=== PATIENT | female | born 1950 | race Two or more races ===

== ENCOUNTER 2020-03-27 14:53 | Inpatient (IN) | payer MEDICARE ==
[~2020-03-27] VITALS: Ht 154.9 cm; Wt 47.2 kg
[2020-03-27] MEDS ORDERED: TEMAZEPAM 7.5 MG CAPSULE PO PRN (15:30)
[2020-03-27] MEDS ORDERED: ACETAMINOPHEN 325 MG TABLET PO PRN (15:30)
[2020-03-27] MEDS ORDERED: MAGNESIUM HYDROXIDE 30 ML UDC PO PRN (15:30)
[2020-03-27] MEDS ORDERED: clonazePAM 0.5 MG TABLET PO PRN (15:30)
[2020-03-27] MEDS ORDERED: MAG HYDROX/AL HYDROX/SIMETH 30 ML UDC PO PRN (15:30)
[2020-03-27] MEDS ORDERED: BLOOD SUGAR DIAGNOSTIC 1 EACH STRIP IN ONE (15:30)
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
[2020-03-27 16:00] VITALS: BP 144/73
[2020-03-27] MEDS ORDERED: DEXTROSE 50%-WATER 50 ML DISP.SYRIN IV PRN (17:00)
[2020-03-27] MEDS: BLOOD SUGAR DIAGNOSTIC 1 EACH STRIP IN SCH ×2 (17:24→21:20)
--- NOTE | 2020-03-27 17:24 | NUR ---
GPS RN NOTE: ACCUCHECK PATIENT REFUSED BEFORE DINNER ACCUCHECK AT 1645 STATING THAT SHE DIDN'T NEED IT BECAUSE HER BG WAS CHECKED AROUND 1600 FOR ADMISSION
--- NOTE | 2020-03-27 17:40 | NUR ---
RN-CO: DR COLES MADE AWARE OF THE ADMISSION.
[2020-03-27 20:00] VITALS: BP 147/69
[2020-03-27] MEDS: INSULIN REGULAR, HUMAN 100 UNIT/ML 3 ML VIAL SQ PRN (21:21)
[2020-03-28] MEDS: BLOOD SUGAR DIAGNOSTIC 1 EACH STRIP IN SCH ×4 (07:37→21:22)
[2020-03-28] MEDS: INSULIN REGULAR, HUMAN 100 UNIT/ML 3 ML VIAL SQ PRN ×4 (07:40→21:24)
[2020-03-28 07:53] LABS: ALBUMIN 3.1 g/dL (3.4-5.0); BILIRUBIN,TOTAL 0.5 mg/dL (0.2-1.0); CALCIUM, SERUM 9.2 mg/dL (8.5-10.1); CREATININE 0.8 mg/dL (0.6-1.3); POTASSIUM 4.3 mmol/L (3.5-5.1)
[2020-03-28 08:00] VITALS: BP 150/80
--- NOTE | 2020-03-28 09:00 | NUR ---
RN NOTE- PT QUIET WITHDRAWN ISOLATIVE INTERACTIVE ON QUERY DENIES SI HI AH VH MUMBLES TO SELF, SINGING SOFTLY IN ROOM WHEN ALONE, PO INTAKE GOOD NO EYE CONTACT WHEN ENGAGED
[2020-03-28] MEDS: risperiDONE 1 MG TABLET PO SCH ×2 (13:46→20:06)
--- NOTE | 2020-03-28 13:49 | NUR ---
INITIAL DISCHARGE PLAN: Pt is homeless and wishes to return to [facility]. Pt refused local SNF placement as she states she is not from around here and does not know this area. ERIN will help form a safe and proper discharge in collaboration with .
[2020-03-28 14:08] LABS: CHOLESTEROL 216 mg/dL (<200); HDL CHOLESTEROL 68 mg/dL (40-60); LDL 136 mg/dL (0-99); TRIGLYCERIDES 102 mg/dL (30-150)
--- NOTE | 2020-03-28 14:55 | NUR ---
GROUP NOTE: SW met with pt to encourage her to participate in group therapy. Pt is not appropriate at this time. Pt has disorganized and paranoid thought process and her speech is mumbled and nonsensical. Pt refused to get up from bed and go to the activity room do to "others will follow me."
[2020-03-28 16:00] VITALS: BP 154/72
[2020-03-28 20:00] VITALS: BP 135/64
[2020-03-28 21:09] VITALS: BP 135/64
[2020-03-29 08:00] VITALS: BP 141/73
[2020-03-29] MEDS: BLOOD SUGAR DIAGNOSTIC 1 EACH STRIP IN SCH ×3 (08:07→21:27)
[2020-03-29] MEDS: risperiDONE 1 MG TABLET PO SCH ×3 (08:08→16:53)
[2020-03-29] MEDS: INSULIN REGULAR, HUMAN 100 UNIT/ML 3 ML VIAL SQ PRN ×4 (08:11→21:28)
[2020-03-29 16:00] VITALS: BP 120/62
[2020-03-29 20:00] VITALS: BP 151/74
[2020-03-29 20:38] VITALS: BP 151/74
--- NOTE | 2020-03-29 21:27 | NUR ---
GPS RN NOTES ACCU-CHECK BLOOD SUGAR CHECK 224,REFUSED INSULIN COVERAGE
[2020-03-30] MEDS: BLOOD SUGAR DIAGNOSTIC 1 EACH STRIP IN SCH ×4 (07:56→21:33)
[2020-03-30] MEDS: risperiDONE 1 MG TABLET PO SCH ×2 (07:57→17:13)
[2020-03-30 08:00] VITALS: BP 149/80
[2020-03-30] MEDS: INSULIN REGULAR, HUMAN 100 UNIT/ML 3 ML VIAL SQ PRN ×3 (08:10→17:30)
[2020-03-30 10:04] LABS: BASOPHILS % (AUTO) 0.4 % (0.0-2.0); EOSINOPHILS % (AUTO) 1.1 % (0.0-6.0); HEMATOCRIT 40 % (33-45); HEMOGLOBIN 13.2 g/dL (11.5-14.8); LYMPHOCYTES # (AUTO) 1.5 /CMM (0.8-4.8); LYMPHOCYTES % (AUTO) 21.7 % (20.0-44.0); MEAN CORPUSCULAR HGB CONC 33 g/dl (31.0-36.0); MEAN CORPUSCULAR VOLUME 88 fL (82-100); MONOCYTES # (AUTO) 0.4 /CMM (0.1-1.30); MONOCYTES % (AUTO) 5.9 % (2.0-12.0); NEUTROPHILS % (AUTO) 70.9 % (43.0-81.0); PLATELET COUNT (AUTO) 179 /CMM (150-450); RED BLOOD CELL COUNT(AUTO) 4.55 MIL/uL (4.0-5.2); WHITE BLOOD COUNT (AUTO) 7.1 K/uL (4.3-11.0)
[2020-03-30 10:39] LABS: BILIRUBIN,TOTAL 0.3 mg/dL (0.2-1.0); CALCIUM, SERUM 9.4 mg/dL (8.5-10.1); CREATININE 0.9 mg/dL (0.6-1.3); POTASSIUM 4.6 mmol/L (3.5-5.1); TOTAL PROTEIN, SERUM 7.2 g/dL (6.4-8.2)
[2020-03-30] MEDS: LISINOPRIL (10MG) 10 MG TABLET PO SCH (12:16)
[2020-03-30] MEDS: METFORMIN 500 MG TABLET PO SCH ×2 (12:16→17:13)
[2020-03-30 15:59] VITALS: BP 134/66
[2020-03-30 19:46] VITALS: BP 126/69
[2020-03-30 20:00] VITALS: BP 126/69
--- NOTE | 2020-03-30 21:10 | NUR ---
GPS RN NOTE: REFUSED SKIN ASSESSMENT PATIENT REFUSED WEEKLY SKIN ASSESSMENT DESPITE OF RISKS & BENEFITS EXPLANATIONS, GOT ANXIOUS, AGITATED & COVERED HER FACE WITH A SHEET.
--- NOTE | 2020-03-30 22:21 | NUR ---
GPS RN NOTE: REFUSED INSULIN PATIENT'S BLOOD SUGAR IS 157 MG/DL, EXPLAINED TO THE PATIENT THAT PER SLIDING SCALE, 2 UNITS NEEDS TO BE GIVEN BUT PATIENT CONTINUED TO REFUSE DESPITE OF EXPLANATIONS. PT KEPT REPEATING," I AM OK, THIS IS NORMAL FOR ME, NO INSULIN, NO INSULIN." PATIENT ALSO REFUSED TO HAVE SNACK AT THIS TIME & WANTED TO SLEEP. WILL CONTINUE TO MONITOR FOR ANY CHANGES. CN MADE AWARE.
[2020-03-31] MEDS: BLOOD SUGAR DIAGNOSTIC 1 EACH STRIP IN SCH ×4 (07:45→21:05)
[2020-03-31] MEDS: INSULIN REGULAR, HUMAN 100 UNIT/ML 3 ML VIAL SQ PRN ×3 (07:47→21:05)
[2020-03-31 08:00] VITALS: BP 133/62
[2020-03-31] MEDS: METFORMIN 500 MG TABLET PO SCH ×2 (09:02→17:32)
[2020-03-31] MEDS: LISINOPRIL (10MG) 10 MG TABLET PO SCH (09:07)
[2020-03-31] MEDS: glipiZIDE 5 MG TABLET PO SCH (09:08)
[2020-03-31] MEDS: risperiDONE 1 MG TABLET PO SCH ×2 (09:08→17:32)
--- NOTE | 2020-03-31 14:52 | NUR ---
GROUP NOTE: SW encouraged pt to attend group therapy on this present day. Pt was asleep and not easily roused by verbal cues.
[2020-03-31 16:00] VITALS: BP 105/53
[2020-03-31 20:18] VITALS: BP 119/62
--- NOTE | 2020-03-31 21:06 | NUR ---
GPS RN NOTES: REFUSED ACCU CHECK PT REFUSED ACCU CHECK. PT STATED, "I WANT TO SLEEP." EXPLAIN RISK AND BENEFITS. PT STILL REFUSED X3. CONTINUE TO MONITOR
[2020-04-01] MEDS: BLOOD SUGAR DIAGNOSTIC 1 EACH STRIP IN SCH ×4 (08:43→21:39)
[2020-04-01] MEDS: risperiDONE 1 MG TABLET PO SCH ×2 (08:45→16:24)
[2020-04-01] MEDS: METFORMIN 500 MG TABLET PO SCH ×2 (08:46→16:23)
[2020-04-01] MEDS: glipiZIDE 5 MG TABLET PO SCH (08:46)
[2020-04-01] MEDS: LISINOPRIL (10MG) 10 MG TABLET PO SCH (08:46)
[2020-04-01] MEDS: SERTRALINE HCL 25 MG TABLET PO SCH (11:28)
[2020-04-01] MEDS: INSULIN REGULAR, HUMAN 100 UNIT/ML 3 ML VIAL SQ PRN ×2 (12:15→21:40)
--- NOTE | 2020-04-01 15:34 | NUR ---
GROUP NOTE: SW encouraged pt to attend group therapy on this present day. Pt was asleep and not easily roused by verbal cues.
[2020-04-01 16:00] VITALS: BP 120/55
--- NOTE | 2020-04-01 19:43 | NUR ---
RN NOTES PATIENT IN BED, ASLEEP, ALERT AND ORIENTED X 2. PT IS CONFUSED, FORGETFUL, COOPERATIVE, AND CALM. SHOWS NO SIGNS OF ACUTE DISTRESS. DISCUSSED PLAN OF CARE. SAFETY PRECAUTIONS IN PLACE. BED IN LOWEST POSITION, LOCKED, AND WILL CONTINUE TO MONITOR.
[2020-04-01 20:57] VITALS: BP 104/69
--- NOTE | 2020-04-01 22:00 | NUR ---
RN NOTES PATIENT BG 147. REFUSED COVERAGE. WILL CONTINUE TO MONITOR.
[2020-04-02] MEDS: BLOOD SUGAR DIAGNOSTIC 1 EACH STRIP IN SCH ×4 (07:30→21:00)
[2020-04-02 08:00] VITALS: BP 125/59
[2020-04-02] MEDS: SERTRALINE HCL 25 MG TABLET PO SCH (09:02)
[2020-04-02] MEDS: risperiDONE 1 MG TABLET PO SCH ×2 (09:02→16:40)
[2020-04-02] MEDS: glipiZIDE 5 MG TABLET PO SCH ×2 (09:02→16:41)
[2020-04-02] MEDS: METFORMIN 500 MG TABLET PO SCH ×2 (09:03→16:41)
[2020-04-02] MEDS: LISINOPRIL (10MG) 10 MG TABLET PO SCH (09:03)
[2020-04-02] MEDS: INSULIN REGULAR, HUMAN 100 UNIT/ML 3 ML VIAL SQ PRN ×3 (12:26→21:01)
--- NOTE | 2020-04-02 14:22 | NUR ---
GROUP NOTE: SW encouraged pt to attend group therapy on this present day. Pt was asleep and not easily roused by verbal cues.
[2020-04-02 16:00] VITALS: BP 106/52
[2020-04-02 20:08] VITALS: BP 102/51
--- NOTE | 2020-04-02 20:56 | NUR ---
GPS RN NOTES: REFUSED INSULIN PT BLOOD SUGAR AT 169. PT REFUSED INSULIN COVERAGE PER SLIDING SCALE. EXPLAIN RISKS AND BENEFITS. PT STILL REFUSED X3. PT STATED, "I DON'T WANT. LET ME SLEEP. ITS A LITTLE HIGH BECAUSE I ATE. I DON'T WANT." PT ALSO REFUSED VITALS PT INCREASED AGITATION. CONTINUE TO MONITOR
[2020-04-03] MEDS: BLOOD SUGAR DIAGNOSTIC 1 EACH STRIP IN SCH ×4 (07:51→22:00)
--- NOTE | 2020-04-03 07:52 | NUR ---
GPS/RN-NOTES PATIENT BS WAS 161MG/DL, PATIENT REFUSED 3UNITS COVERAGE. STATED" I DON'T WANT INSULIN". OFFERED X3 STILL REFUSED.
[2020-04-03 08:00] VITALS: BP 123/64
[2020-04-03] MEDS: glipiZIDE 5 MG TABLET PO SCH ×2 (08:37→16:30)
[2020-04-03] MEDS: METFORMIN 500 MG TABLET PO SCH ×2 (08:37→16:29)
[2020-04-03] MEDS: risperiDONE 1 MG TABLET PO SCH ×2 (08:37→16:29)
[2020-04-03] MEDS: SERTRALINE HCL 25 MG TABLET PO SCH (08:37)
[2020-04-03] MEDS: LISINOPRIL (10MG) 10 MG TABLET PO SCH (08:39)
--- NOTE | 2020-04-03 08:40 | NUR ---
SNF REFERRAL: ERIN faxed SNF referral to Leticia, rn admissions at [facility] Address: [address], [place] [address] for review.
--- NOTE | 2020-04-03 11:57 | NUR ---
GPS/RN-NOTES PATIENT BS WAS 143MG/DL, PATIENT REFUSED 3UNITS COVERAGE. STATED" I DON'T WANT INSULIN THAT'S FINE". OFFERED X3 STILL REFUSED.
--- NOTE | 2020-04-03 14:53 | NUR ---
INDIVIDUAL INTERVENTION: SW spoke with pt regarding her discharge. Pt states she does not know where she will go and then stated that she will have someone pick her up. Pt appears paranoid and is wearing sun glasses. Pt did not engage in conversation
--- NOTE | 2020-04-03 15:49 | NUR ---
SNF REFERRAL: SW received a call from Leticia, public information coordinator from Leticia, public information coordinator at [facility] Address: [address] [place] [address] who states pt has been accepted to the facility pending COVID results.
[2020-04-03 16:00] VITALS: BP 125/63
[2020-04-03] MEDS: INSULIN REGULAR, HUMAN 100 UNIT/ML 3 ML VIAL SQ PRN (16:44)
[2020-04-03 20:00] VITALS: BP 111/56
--- NOTE | 2020-04-03 22:19 | NUR ---
RN GPS NOTES PATIENT REFUSED TO HAVE ACCUCHECK DONE DESPITE EDUCATION RISKS AND BENEFITS GIVEN PATIENT STILL REFUSED STATING, " IM NOT GOING TO DO IT".
[2020-04-04 06:09] VITALS: BP 111/56
[2020-04-04 08:00] VITALS: BP 154/74
[2020-04-04] MEDS: BLOOD SUGAR DIAGNOSTIC 1 EACH STRIP IN SCH ×4 (08:14→22:39)
[2020-04-04] MEDS: METFORMIN 500 MG TABLET PO SCH ×2 (08:45→17:00)
[2020-04-04] MEDS: risperiDONE 1 MG TABLET PO SCH ×2 (08:46→17:00)
[2020-04-04] MEDS: LISINOPRIL (10MG) 10 MG TABLET PO SCH (08:46)
[2020-04-04] MEDS: SERTRALINE HCL 25 MG TABLET PO SCH (08:46)
[2020-04-04] MEDS: glipiZIDE 5 MG TABLET PO SCH ×2 (08:46→17:00)
--- NOTE | 2020-04-04 13:59 | NUR ---
GPS/RN-NOTES BS WAS 177 MG/DL,3 UNITS OF R INSULIN STRONGLY REFUSED" STATED" NO INSULIN". OFFERED X3
[2020-04-04 16:00] VITALS: BP 127/57
--- NOTE | 2020-04-04 18:36 | NUR ---
GPS/RN-NOTES BS WAS 155 MG/DL,2 UNITS OF R INSULIN STRONGLY REFUSED" STATED" NO INSULIN". OFFERED X3
--- NOTE | 2020-04-04 18:43 | NUR ---
GPS/RN-NOTES PATIENT GUARDED ISOLATIVE IN THE ROOM REFUSED TO ATTEND GROUP ACTIVITIES,PREFERS TO STAY IN THE ROOM RESTING. NOTED RESPONDING TO INTERNAL STIMULI/ MUMBLING AND TALKING TO SELF. WILL ENDORSE TO INCOMING SHIFT FOR CONTINUITY OF CARE.
--- NOTE | 2020-04-04 22:39 | NUR ---
GPS RN NOTE: PT BLOOD SUGAR 168MG/DL AT 2200. PT REFUSED SLIDING SCALE INSULIN 3 UNITS ORDERED. PT CURRENTLY LAYING IN BED WITH NO S/S OF ANY DISTRESS. WILL CONTINUE TO MONITOR.
--- NOTE | 2020-04-05 06:42 | NUR ---
GPS RN CLOSING NOTE: PT LAYING IN BED AWAKE, A/O X2. RESPIRATION EVEN AND UNLABORED WITH EQUAL RISE AND FALL OF THE CHEST ON ROOM AIR. NO S/S OF ANY DISTRESS AT THIS TIME. NO BEHAVIORAL ISSUES AT THIS TIME. ENDORSING TO AM SHIFT.
[2020-04-05] MEDS: BLOOD SUGAR DIAGNOSTIC 1 EACH STRIP IN SCH ×4 (07:30→21:49)
--- NOTE | 2020-04-05 07:45 | NUR ---
GPS/RN PT REFUSED ACCUCHECK OFFERED X3
[2020-04-05 08:00] VITALS: BP 140/70
[2020-04-05] MEDS: METFORMIN 500 MG TABLET PO SCH ×2 (08:48→16:24)
[2020-04-05] MEDS: glipiZIDE 5 MG TABLET PO SCH ×2 (08:48→16:24)
[2020-04-05] MEDS: LISINOPRIL (10MG) 10 MG TABLET PO SCH (08:49)
[2020-04-05] MEDS: risperiDONE 1 MG TABLET PO SCH ×2 (08:49→16:24)
[2020-04-05] MEDS: SERTRALINE HCL 25 MG TABLET PO SCH (08:49)
--- NOTE | 2020-04-05 12:23 | NUR ---
GPS/RN ACCUCHECK WITH MK=581. PT REFUSED INSULIN COVERAGE OFFERED X3
[2020-04-05 16:00] VITALS: BP 108/56
[2020-04-05 20:00] VITALS: BP 146/65
[2020-04-05 20:29] VITALS: BP 146/65
--- NOTE | 2020-04-05 21:49 | NUR ---
GPS/RN NOTE ACCU CHECK WITH ND=267. PT REFUSED INSULIN COVERAGE OFFERED X3 DESPITE OF RISKS & BENEFITS EXPLANATIONS. REFUSED SNACK AT THIS TIME WELL, WANTED TO SLEEP ONLY.
[2020-04-05 22:10] VITALS: BP 131/68
[2020-04-06] MEDS: BLOOD SUGAR DIAGNOSTIC 1 EACH STRIP IN SCH ×4 (07:30→21:04)
[2020-04-06 08:00] VITALS: BP 107/62
--- NOTE | 2020-04-06 08:00 | NUR ---
GPS/RN GPS/RN PT REFUSED [id number] ACCUCHECK OFFERED X3
[2020-04-06] MEDS: SERTRALINE HCL 25 MG TABLET PO SCH (08:50)
[2020-04-06] MEDS: risperiDONE 1 MG TABLET PO SCH ×2 (08:50→16:37)
[2020-04-06] MEDS: METFORMIN 500 MG TABLET PO SCH ×2 (08:50→16:37)
[2020-04-06] MEDS: glipiZIDE 5 MG TABLET PO SCH ×2 (08:50→16:37)
[2020-04-06] MEDS: LISINOPRIL (10MG) 10 MG TABLET PO SCH (08:51)
--- NOTE | 2020-04-06 12:15 | NUR ---
GPS/RN PT REFUSED ACCUCHECK FOR 1200 OFFERED X3
[2020-04-06 16:00] VITALS: BP 119/63
--- NOTE | 2020-04-06 18:00 | NUR ---
GPS/RN PT REFUSED INSULIN COVERAGE OFFERED X3
[2020-04-06] MEDS: INSULIN REGULAR, HUMAN 100 UNIT/ML 3 ML VIAL SQ PRN (21:04)
--- NOTE | 2020-04-06 21:05 | NUR ---
GPS RN NOTES: REFUSED INSULIN PT BLOOD SUGAR 178. PT REFUSED INSULIN DUE. EXPLAIN RISKS AND BENEFITS. PT STILL REFUSED X3. CONTINUE TO MONITOR.
[2020-04-06 21:18] VITALS: BP 150/78
[2020-04-07] MEDS: BLOOD SUGAR DIAGNOSTIC 1 EACH STRIP IN SCH ×4 (07:25→21:08)
[2020-04-07 08:00] VITALS: BP 134/76
[2020-04-07] MEDS: METFORMIN 500 MG TABLET PO SCH ×2 (08:30→16:56)
[2020-04-07] MEDS: glipiZIDE 5 MG TABLET PO SCH ×2 (08:30→16:55)
[2020-04-07] MEDS: LISINOPRIL (10MG) 10 MG TABLET PO SCH (08:31)
[2020-04-07] MEDS: risperiDONE 1 MG TABLET PO SCH ×2 (08:31→16:54)
[2020-04-07] MEDS: SERTRALINE HCL 25 MG TABLET PO SCH (08:31)
--- NOTE | 2020-04-07 14:00 | NUR ---
GROUP NOTE: SW encouraged pt to attend group therapy on this present day. Pt refused and did not engage with SW. Pt just walked away. SW attempted to reengage pt however pt refused.
[2020-04-07 16:00] VITALS: BP 106/55
[2020-04-07] MEDS: INSULIN REGULAR, HUMAN 100 UNIT/ML 3 ML VIAL SQ PRN ×2 (17:38→21:09)
[2020-04-07 20:14] VITALS: BP 117/58
[2020-04-08] MEDS: BLOOD SUGAR DIAGNOSTIC 1 EACH STRIP IN SCH ×4 (07:36→21:29)
[2020-04-08 08:00] VITALS: BP 114/80
[2020-04-08] MEDS: INSULIN REGULAR, HUMAN 100 UNIT/ML 3 ML VIAL SQ PRN ×3 (08:07→22:16)
[2020-04-08] MEDS: METFORMIN 500 MG TABLET PO SCH ×2 (08:17→16:31)
[2020-04-08] MEDS: risperiDONE 1 MG TABLET PO SCH ×2 (08:17→16:32)
[2020-04-08] MEDS: glipiZIDE 5 MG TABLET PO SCH ×2 (08:17→16:31)
[2020-04-08] MEDS: LISINOPRIL (10MG) 10 MG TABLET PO SCH (08:18)
[2020-04-08] MEDS: SERTRALINE HCL 25 MG TABLET PO SCH (08:23)
--- NOTE | 2020-04-08 14:24 | NUR ---
GROUP NOTE: SW encouraged pt to attend group therapy on this present day. Pt was asleep and not easily roused by verbal cues.
[2020-04-08 16:00] VITALS: BP 111/59
[2020-04-08 20:36] VITALS: BP 125/64
[2020-04-09] MEDS: BLOOD SUGAR DIAGNOSTIC 1 EACH STRIP IN SCH ×2 (07:39→11:50)
[2020-04-09] MEDS: INSULIN REGULAR, HUMAN 100 UNIT/ML 3 ML VIAL SQ PRN (07:43)
[2020-04-09 08:00] VITALS: BP 134/60
[2020-04-09] MEDS: METFORMIN 500 MG TABLET PO SCH (08:38)
[2020-04-09] MEDS: SERTRALINE HCL 25 MG TABLET PO SCH (08:40)
[2020-04-09 08:41] VITALS: BP 134/60
[2020-04-09] MEDS: glipiZIDE 5 MG TABLET PO SCH (08:41)
[2020-04-09] MEDS: LISINOPRIL (10MG) 10 MG TABLET PO SCH (08:41)
[2020-04-09] MEDS: risperiDONE 1 MG TABLET PO SCH ×2 (08:42→16:26)
--- NOTE | 2020-04-09 10:00 | NUR ---
RN-CO: Patient is alert and oriented 3-4, denied suicidal and homicidal ideation. Denied auditory and visual hallucination. No acute distress noted. Aware of her discharge today to [facility]. Patient used to be homeless and no family members to notified. Dr Simpson ordered to discharge patient and discontinue hold. Dr Thacker reconcile her medications and medically cleared her for discharge. All belongings will be given back to the patient. Discharge papers will be explained to her.
--- NOTE | 2020-04-09 11:30 | NUR ---
GPS RN NOTE PATIENT VERBALLY AGREED TO SIGN DISCHARGE PAPERWORK BUT DID NOT WANT TO PHYSICALLY SIGN. REPORT GIVEN TO [facility], REPORT GIVEN TO GINNY TOMLINSON.
--- NOTE | 2020-04-09 11:55 | NUR ---
DISCHARGE NOTE: Pt will be discharged at time 1:30pm via [facility] to [facility] Address: [address] [place] [address] . Pt is homeless and has no family to notify. Pts mood is paranoid with flat affect. Pt denied visual/auditory hallucinations and denied suicidal/homicidal ideation. Pt will be under the care of Psychiatrist: Dr. Simpson Address: [address] [place] [address] Phone: and [employer] Machine Tender: Dr Thacker Address: [address] [address] [phone]. The multidisciplinary exit care form was done, printed, signed, and given to the patient.
--- NOTE | 2020-04-09 16:45 | NUR ---
RN-CO: Patient was picked up by JENNIFER, TRIP [id number]. All belongings was given back to the patient.
== END 2020-04-09 16:45 | DRG 885 ==
LOC: GPS 14:53
PROVIDERS: ADMIT Psychiatry & Neurology Psychiatry; ATTEND Internal Medicine
DX: F29 Unspecified psychosis not due to a substance or known physiological condition (principal); R45.851 Suicidal ideations; F41.9 Anxiety disorder, unspecified; R26.9 Unspecified abnormalities of gait and mobility; E11.9 Type 2 diabetes mellitus without complications; I10 Essential (primary) hypertension; F32.9 Major depressive disorder, single episode, unspecified; R27.8 Other lack of coordination; F20.9 Schizophrenia, unspecified; Z59.0 Homelessness; M62.81 Muscle weakness (generalized); Z91.81 History of falling
CPT/HCPCS: 36415; 80053-TC; 80061-TC; 82962-TC; 85025-TC; 87081-TC; J1815; U0003-CS